=== PATIENT | male | born 1975 | race Caucasian/White ===

== ENCOUNTER → 2020-03-11 | Day surgery (SDC) | payer BC ==
[2020-03-04 15:13] LABS: CLARITY,URINE CLEAR (Clear); COLOR,URINE YELLOW (Yellow); GLUCOSE, URINE NEGATIVE (Neg); KETONES,URINE NEGATIVE (Neg); LEUKOCYTE ESTERASE ,URINE NEGATIVE (Neg); NITRITES, URINE NEGATIVE (Neg); OCCULT BLOOD,URINE NEGATIVE (Neg); PROTEIN,URINE NEGATIVE (Neg); UROBILINOGEN,URINE 0.2 E.U/dL (0.2-1.0)
[2020-03-04 15:15] LABS: BASOPHILS % (AUTO) 0.5 % (0-1); EOSINOPHILS # (AUTO) 0.1 X10'3 (0-0.9); EOSINOPHILS % (AUTO) 2.4 % (0-6); LYMPHOCYTES % (AUTO) 36.6 % (21-51); MEAN CORPUSCULAR HEMOGLOBIN 30.2 PG (27.0-31.0); MEAN CORPUSCULAR HGB CONC 33.7 g/dL (33.0-36.5); MEAN CORPUSCULAR VOLUME 89.8 FL (78-98); MEAN PLATELET VOLUME 8.5 FL (7.4-10.4); MONOCYTES # (AUTO) 0.5 X10'3 (0-0.9); MONOCYTES % (AUTO) 9.6 % (2-12); NEUTROPHILS # (AUTO) 2.8 X10'3 (1.8-7.7); NEUTROPHILS % (AUTO) 50.9 % (42-75); PRE OP HEMATOCRIT 41.7 % (42.0-52.0); PRE OP PLATELET COUNT 245 X10'3 (140-440); RED BLOOD COUNT 4.65 X10'6 (4.70-6.10); RED CELL DISTRIBUTION WIDTH 14.5 % (11.5-14.5)
[2020-03-04 15:18] LABS: UA COLLECTION TYPE CLN CATCH MIDSTREAM
[2020-03-04 15:37] LABS: ALBUMIN 3.8 G/DL (3.4-5.0); ALBUMIN/GLOBULIN RATIO 1.1 (1.1-1.5); ALKALINE PHOSPHATASE 47 IU/L (46-116); BLOOD UREA NITROGEN 16 MG/DL (7-18); BUN/CREATININE RATIO 15.4 (5.4-32.0); CALCIUM 8.7 MG/DL (8.5-10.1); CHLORIDE 106 MMOL/L (99-107); CREATININE 1.04 MG/DL (0.60-1.10); PRE OP ALT 22 U/L (30-65); PRE OP ANION GAP 6 (8-16); PRE OP AST 13 U/L (10-37); PRE OP BILIRUB, TOTAL 0.5 MG/DL (0.0-1.0); PRE OP GLUCOSE 86 MG/DL (70-104); PRE OP SODIUM 140 MMOL/L (135-145); TOTAL CARBON DIOXIDE 28.2 MMOL/L (24-32); TOTAL PROTEIN 7.2 G/DL (6.4-8.2); eGFR 77 ML/MIN
[~2020-03-11] VITALS: Ht 180.3 cm; Wt 97.1 kg
[2020-03-11] VITALS (10 sets, daily range): BP systolic 134–150; BP diastolic 76–112
[~2020-03-11] MED LIST: BUPIVAcaine/PF 2.5 mg/ml (0.25%) 30ml vial ONE; HYDROcodone/acetaminophen 10/325mg tab PO ONE; LIDOcaine 2% (20mg/ml) 5ml vial ONE; NO HOME MEDS; ceFAZolin 2gm in dextrose, iso 50 ML IV ONE; famotidine 20mg tablet PO ONE; fentaNYL/PF 50MCG/1 ML 2ML syringe IV PRN; fentaNYL/PF 50MCG/1 ML 2ML syringe ONE; glycopyrrolate 0.2mg/ml inj ONE; hydrALAZINE 20mg/ml inj. IV PRN; ketorolac trometh. 30mg/ml inj. IV ONE; labetalol 20mg/4ml (5mg/ml) syringe IV PRN; midazolam 2 mg/2 ml injection ONE; morphine 10mg/ml inj. ONE; morphine 2 MG/ML inj. syringe IV PRN; ondansetron/PF 4mg/2ml inj IV PRN; ondansetron/PF 4mg/2ml inj ONE; propofol inj 20 ML IV ONE; ringers solution, lacted 1,000 ML IV SCH; rocuronium 10mg/ml inj IV ONE
--- NOTE | 2020-03-11 12:06 | NUR ---
ARRIVED IN PACU. O2 ON. DR Russell IN ATTENDANCE. REPORT RECEIVED. PT RESTLESS AND SITTING UP IN BED. C/O PAIN AND STRONG URGE TO VOID
[2020-03-11] MEDS: fentaNYL/PF 50MCG/1 ML 2ML syringe IV PRN ×2 (12:11→12:18)
[2020-03-11] MEDS: morphine 4 MG/ML inj SYRINge IV PRN ×2 (12:33→13:00)
--- NOTE | 2020-03-11 12:36 | NUR ---
RESTING THOUGH STILL C/O UNCONTROLLED PAIN. MEDS ORDERED
--- NOTE | 2020-03-11 13:02 | NUR ---
FENTANYL DOSES AT 1211 AND 1218 OUT OF SAME VIAL
--- NOTE | 2020-03-11 13:03 | NUR ---
STATES PAIN STILL REAL BAD, BUT NOW SLEEPING IN INTERVALS NOW
--- NOTE | 2020-03-11 13:45 | NUR ---
GETTING MORE COMFORTABLE. REVIEWED DISCHARGE WITH PATIENT AND (OVER PHONE) UP STEADY ON FEET. DRESSED WITH LITTLE ASSISTANCE. TO CAR VIA W/C, ACCOMPANIED BY NURSE
== END | disposition home or self-care (01) ==
LOC: PAS 07:40
PROVIDERS: ATTEND Surgery
DX: K43.9 Ventral hernia without obstruction or gangrene (principal); Z72.89 Other problems related to lifestyle; Z79.899 Other long term (current) drug therapy; Z11.59 Encounter for screening for other viral diseases; Z87.891 Personal history of nicotine dependence
CPT/HCPCS: 36415; 49652; 80053; 81003; 82948; 85025; 93005; C1758; C1781; J1885; J2001; J2250; J2270; J2405; J2704; J3010; J3490; J7120; U0003; A4215; A4618; A7000